=== PATIENT | male | born 1960 | race Caucasian/White ===

== ENCOUNTER 2023-12-24 15:08 | Observation (INO) | payer MEDICARE ==
--- NOTE | 2023-12-24 15:36 | ED ---
Arrhythmia/Palpitations HPI - General Stated Complaint: chest pain/dizzy Time Seen by Provider: 12/24/23 15:15 - History of Present Illness Initial Comments: Patient is a 63-year-old male with a history of recurrent SVT who presents to the emergency department today via ambulance for evaluation of palpitations lightheadedness diaphoresis and chest pain. Patient reports that he was sitting eating with his when he began having some lightheadedness feeling like he was about to pass out and then noticed his heart was racing he then developed pain in his chest radiating to his left arm. EMS was called and found the patient vance pale diaphoretic and SVT with a heart rate of 190. IV access was obtained the patient was given a 6 mg dose of adenosine. Patient's SVT resolved he was in a sinus rhythm transported to hospital for further evaluation. Patient ports he has a history of recurrent SVT usually has 3-4 but up to 10 episodes per year since 2018, he is followed with cardiology in the past there is been no intervention he was at 1 point prescribed metoprolol but he had orthostatic symptoms with this so discontinued taking it. Patient states that all the times he had SVT is never had near syncope or chest pain. Patient denies any other cardiac history. No known CAD. He is a previous smoker quit 15 years ago he has high cholesterol - Related Data Home Medications Medication Instructions Recorded Confirmed Buprenorphine/Naloxone 8Mg/2Mg 1 film SL DAILY 12/24/23 12/24/23 [Suboxone 8-2Mg Film] Cyclobenzaprine [Flexeril] 10 mg PO HS 12/24/23 12/24/23 Temazepam [Restoril] 15 mg PO HS 12/24/23 12/24/23 lamoTRIgine [LaMICtal] 100 mg PO DAILY 12/24/23 12/24/23 Allergies Allergy/AdvReac Type Severity Reaction Status Date / Time codeine Allergy Rash/Hives Verified 12/24/23 15:39 amitriptyline [From Elavil] AdvReac Unknown Verified 12/24/23 15:39 ibuprofen [From Motrin] AdvReac Abdominal Verified 12/24/23 15:40 Pain Review of Systems ROS Statement: Those systems with pertinent positive or pertinent negative responses have been documented in the HPI. ROS Other: All systems not noted in ROS Statement are negative. General Exam - General Exam Comments Initial Comments: Physical Exam GENERAL: Patient is well-developed and well-nourished. Patient is nontoxic and well- hydrated and is in no distress. HENT: Normocephalic, Atraumatic. EYES: PERRL, EOMI PULMONARY: Unlabored respirations. No audible rales rhonchi or wheezing was noted. CARDIOVASCULAR: There is a regular rate and rhythm without any murmurs gallops or rubs. ABDOMEN: Soft and nontender with normal bowel sounds. SKIN: Skin is clear with no lesions or rashes and otherwise unremarkable. : Deferred NEUROLOGIC: Patient is alert and oriented x3. Moving all extremities spontaneously MUSCULOSKELETAL: Normal extremities with adequate strength and full range of motion. No lower extremity swelling or edema. No calf tenderness. PSYCHIATRIC: Normal psychiatric evaluation. Course Vital Signs 12/24/23 12/24/23 12/24/23 15:33 16:45 17:45 Temperature 98.4 F 98.0 F Pulse Rate 98 79 83 Respiratory 18 16 18 Rate Blood Pressure 127/90 130/85 137/101 O2 Sat by Pulse 95 98 Oximetry 12/24/23 18:58 Temperature Pulse Rate 73 Respiratory 18 Rate Blood Pressure 120/79 O2 Sat by Pulse 96 Oximetry EKG Findings - EKG Comments: EKG Findings:: Reported by me, EKG obtained due to arrhythmia, EKG obtained at 1519 rate is 97 rhythm is normal sinus, normal axis, normal intervals OH 120 QRS 94 QTc 386 No evidence of acute ischemia or infarction Medical Decision Making - Medical Decision Making Was pt. sent in by a medical professional or institution (, PA, ANTIQUE COLLECTOR, urgent care, hospital, or [facility]...) When possible be specific @ -No Did you speak to anyone other than the patient for history (EMS, parent, family, police, friend...)? What history was obtained from this source @ -EMS Did you review nursing and triage notes (agree or disagree)? Why? @ -I reviewed and agree with nursing and triage notes Were old charts reviewed (outside hosp., previous admission, EMS record, old EKG, old radiological studies, urgent care reports/EKG's, [facility] records)? Report findings @ -No old charts were reviewed Differential Diagnosis (chest pain, altered mental status, abdominal pain women, abdominal pain men, vaginal bleeding, weakness, fever, dyspnea, syncope, headache, dizziness, GI bleed, back pain, seizure, CVA, palpatations, mental health)? @ -Differential Chest Pain: Stable Angina, Unstable Angina, STEMI, NSTEMI Aortic Dissection, Pneumothorax, Musculoskeletal, Esophageal Spasm GERD, Cholecystitis, Pancreatitis, Zoster, this is not meant to be an all-inclusive list. Differential Palpitations Ventricular arrhythmias, atrial arrhythmias, myocardial infarction, anemia, thyrotoxicosis, electrolyte imbalance, hypokalemia, pulmonary embolism, pulmonary disease, drugs, alcohol, anxiety, stress.... This is not meant to be an all-inclusive list. EKG interpreted by me (3pts min.). @ -As above X-rays interpreted by me (1pt min.). @ -No acute abnormality CT interpreted by me (1pt min.). @ -None done U/S interpreted by me (1pt. min.). @ -None done What testing was considered but not performed or refused? (CT, X-rays, U/S, labs)? Why? @ -None What meds were considered but not given or refused? Why? @ -None Did you discuss the management of the patient with other professionals (professionals i.e. , PA, ANTIQUE COLLECTOR, lab, RT, psych nurse, social security assessor, metal patternmaker apprentice, teacher, multisensor intelligence officer, rifle case repairer)? Give summary @ -Discussed with Dr. Hagan cardiology who recommends observation overnight for cardiology evaluation Was smoking cessation discussed for >3mins.? @ -No Was critical care preformed (if so, how long)? @ -No Were there social determinants of health that impacted care today? How? (Homelessness, low income, unemployed, alcoholism, drug addiction, transportation, low edu. Level, literacy, decrease access to med. care, penitentiary, rehab)? @ -No Was there de-escalation of care discussed even if they declined (Discuss DNR or withdrawal of care, Hospice)? DNR status @ -No What co-morbidities impacted this encounter? (DM, HTN, Smoking, COPD, CAD, Cancer, CVA, ARF, Chemo, Hep., AIDS, mental health diagnosis, sleep apnea, morbid obesity)? @ -None Was patient admitted / discharged? Hospital course, mention meds given and route, prescriptions, significant lab abnormalities, going to OR and other pertinent info. @ -Admit Patient was seen and evaluated upon arrival, he was in sinus tachycardia and no more SVT. He is not having any chest pain or near syncope. Labs were obtained and are unremarkable. Patient care was discussed Dr. Hagan who recommended trending the troponin and placing the patient in observation overnight for cardiology and GI evaluation considering the patient's lack of outpatient follow-up in the past few years. Patient care was discussed with Dr. Chicas who accepts admission patient was agreeable to plan for admission. Undiagnosed new problem with uncertain prognosis? @ -No Drug Therapy requiring intensive monitoring for toxicity (Heparin, Nitro, Insulin, Cardizem)? @ -No Were any procedures done? @ -No Diagnosis/symptom? @ -SVT, chest pain Acute, or Chronic, or Acute on Chronic? @ -Acute Uncomplicated (without systemic symptoms) or Complicated (systemic symptoms)? @ -Default Side effects of treatment? @ -No Exacerbation, Progression, or Severe Exacerbation? @ -No Poses a threat to life or bodily function? How? (Chest pain, [place], [place], pneumonia, PE, COPD, DKA, ARF, appy, cholecystitis, CVA, Diverticulitis, Homicidal, Suicidal, threat to staff... and all critical care pts) @ -Potential sign of cardiac ischemia or unstable angina - Lab Data Result diagrams: 12/24/23 15:59 12/24/23 15:59 Lab Results 12/24/23 12/24/23 12/24/23 Range/Units 15:59 15:59 15:59 WBC 7.4 (3.8-10.6) k/uL RBC 4.98 (4.30-5.90) m/uL Hgb 15.8 (13.0-17.5) gm/dL Hct 47.4 (39.0-53.0) % MCV 95.1 (80.0-100.0) fL MCH 31.7 (25.0-35.0) pg MCHC 33.3 (31.0-37.0) g/dL RDW 12.6 (11.5-15.5) % Plt Count 299 (150-450) k/uL MPV 6.9 Neutrophils % 68 % Lymphocytes % 22 % Monocytes % 7 % Eosinophils % 3 % Basophils % 1 % Neutrophils # 5.0 (1.3-7.7) k/uL Lymphocytes # 1.6 (1.0-4.8) k/uL Monocytes # 0.5 (0-1.0) k/uL Eosinophils # 0.2 (0-0.7) k/uL Basophils # 0.0 (0-0.2) k/uL PT 10.1 (10.0-12.5) sec INR 0.9 (<1.2) APTT 24.7 (22.0-30.0) sec Sodium 138 (137-145) mmol/L Potassium 4.1 (3.5-5.1) mmol/L Chloride 108 H (98-107) mmol/L Carbon Dioxide 23 (22-30) mmol/L Anion Gap 7 mmol/L BUN 19 (9-20) mg/dL Creatinine 0.73 (0.66-1.25) mg/dL Est GFR (CKD-EPI)AfAm >90 (>60 ml/min/1.73 sqM) Est GFR (CKD-EPI)NonAf >90 (>60 ml/min/1.73 sqM) Glucose 96 (74-99) mg/dL POC Glucose (mg/dL) (70-110) mg/dL POC Glu Multimedia Services Manager ID Calcium 9.3 (8.4-10.2) mg/dL Magnesium 2.0 (1.6-2.3) mg/dL Total Bilirubin 0.4 (0.2-1.3) mg/dL AST 22 (17-59) U/L ALT 17 (4-49) U/L Alkaline Phosphatase 85 (38-126) U/L Troponin I (0.000-0.034) ng/mL Total Protein 6.7 (6.3-8.2) g/dL Albumin 4.2 (3.5-5.0) g/dL TSH 0.801 (0.465-4.680) mIU/L Urine Opiates Screen (NotDetected) Ur Oxycodone Screen (NotDetected) Urine Methadone Screen (NotDetected) Ur Barbiturates Screen (NotDetected) U Tricyclic Antidepress (NotDetected) Ur Phencyclidine Scrn (NotDetected) Ur Amphetamines Screen (NotDetected) U Methamphetamines Scrn (NotDetected) U Benzodiazepines Scrn (NotDetected) Urine Cocaine Screen (NotDetected) U Marijuana (THC) Screen (NotDetected) 12/24/23 12/24/23 12/24/23 Range/Units 15:59 15:59 19:01 WBC (3.8-10.6) k/uL RBC (4.30-5.90) m/uL Hgb (13.0-17.5) gm/dL Hct (39.0-53.0) % MCV (80.0-100.0) fL MCH (25.0-35.0) pg MCHC (31.0-37.0) g/dL RDW (11.5-15.5) % Plt Count (150-450) k/uL MPV Neutrophils % % Lymphocytes % % Monocytes % % Eosinophils % % Basophils % % Neutrophils # (1.3-7.7) k/uL Lymphocytes # (1.0-4.8) k/uL Monocytes # (0-1.0) k/uL Eosinophils # (0-0.7) k/uL Basophils # (0-0.2) k/uL PT (10.0-12.5) sec INR (<1.2) APTT (22.0-30.0) sec Sodium (137-145) mmol/L Potassium (3.5-5.1) mmol/L Chloride (98-107) mmol/L Carbon Dioxide (22-30) mmol/L Anion Gap mmol/L BUN (9-20) mg/dL Creatinine (0.66-1.25) mg/dL Est GFR (CKD-EPI)AfAm (>60 ml/min/1.73 sqM) Est GFR (CKD-EPI)NonAf (>60 ml/min/1.73 sqM) Glucose (74-99) mg/dL POC Glucose (mg/dL) 101 (70-110) mg/dL POC Glu Multimedia Services Manager ID August Calcium (8.4-10.2) mg/dL Magnesium (1.6-2.3) mg/dL Total Bilirubin (0.2-1.3) mg/dL AST (17-59) U/L ALT (4-49) U/L Alkaline Phosphatase (38-126) U/L Troponin I <0.012 (0.000-0.034) ng/mL Total Protein (6.3-8.2) g/dL Albumin (3.5-5.0) g/dL TSH (0.465-4.680) mIU/L Urine Opiates Screen Not Detected (NotDetected) Ur Oxycodone Screen Not Detected (NotDetected) Urine Methadone Screen Not Detected (NotDetected) Ur Barbiturates Screen Not Detected (NotDetected) U Tricyclic Antidepress Not Detected (NotDetected) Ur Phencyclidine Scrn Not Detected (NotDetected) Ur Amphetamines Screen Not Detected (NotDetected) U Methamphetamines Scrn Not Detected (NotDetected) U Benzodiazepines Scrn Detected H (NotDetected) Urine Cocaine Screen Not Detected (NotDetected) U Marijuana (THC) Screen Detected H (NotDetected) 12/24/23 Range/Units 19:05 WBC (3.8-10.6) k/uL RBC (4.30-5.90) m/uL Hgb (13.0-17.5) gm/dL Hct (39.0-53.0) % MCV (80.0-100.0) fL MCH (25.0-35.0) pg MCHC (31.0-37.0) g/dL RDW (11.5-15.5) % Plt Count (150-450) k/uL MPV Neutrophils % % Lymphocytes % % Monocytes % % Eosinophils % % Basophils % % Neutrophils # (1.3-7.7) k/uL Lymphocytes # (1.0-4.8) k/uL Monocytes # (0-1.0) k/uL Eosinophils # (0-0.7) k/uL Basophils # (0-0.2) k/uL PT (10.0-12.5) sec INR (<1.2) APTT (22.0-30.0) sec Sodium (137-145) mmol/L Potassium (3.5-5.1) mmol/L Chloride (98-107) mmol/L Carbon Dioxide (22-30) mmol/L Anion Gap mmol/L BUN (9-20) mg/dL Creatinine (0.66-1.25) mg/dL Est GFR (CKD-EPI)AfAm (>60 ml/min/1.73 sqM) Est GFR (CKD-EPI)NonAf (>60 ml/min/1.73 sqM) Glucose (74-99) mg/dL POC Glucose (mg/dL) (70-110) mg/dL POC Glu Multimedia Services Manager ID Calcium (8.4-10.2) mg/dL Magnesium (1.6-2.3) mg/dL Total Bilirubin (0.2-1.3) mg/dL AST (17-59) U/L ALT (4-49) U/L Alkaline Phosphatase (38-126) U/L Troponin I <0.012 (0.000-0.034) ng/mL Total Protein (6.3-8.2) g/dL Albumin (3.5-5.0) g/dL TSH (0.465-4.680) mIU/L Urine Opiates Screen (NotDetected) Ur Oxycodone Screen (NotDetected) Urine Methadone Screen (NotDetected) Ur Barbiturates Screen (NotDetected) U Tricyclic Antidepress (NotDetected) Ur Phencyclidine Scrn (NotDetected) Ur Amphetamines Screen (NotDetected) U Methamphetamines Scrn (NotDetected) U Benzodiazepines Scrn (NotDetected) Urine Cocaine Screen (NotDetected) U Marijuana (THC) Screen (NotDetected) Disposition Clinical Impression: Supraventricular tachycardia, Chest pain Disposition: ADMITTED IP TO THIS [facility] Condition: Stable Referrals: Nonstaff,Physician [Primary Care Provider] - 1-2 days
[2023-12-24 16:21] LABS: Basophils % (A) 1 %; Eosinophils # (A) 0.2 k/uL (0-0.7); Eosinophils % (A) 3 %; HCT 47.4 % (39.0-53.0); HGB 15.8 gm/dL (13.0-17.5); Lymphocytes # (A) 1.6 k/uL (1.0-4.8); Lymphocytes % (A) 22 %; MCH 31.7 pg (25.0-35.0); MCHC 33.3 g/dL (31.0-37.0); MCV 95.1 fL (80.0-100.0); Mean Platelet Volume 6.9; Monocytes # (A) 0.5 k/uL (0-1.0); Monocytes % (A) 7 %; Neutrophils % (A) 68 %; Platelet Count 299 k/uL (150-450); RBC 4.98 m/uL (4.30-5.90); RDW 12.6 % (11.5-15.5); WBC 7.4 k/uL (3.8-10.6)
--- NOTE | 2023-12-24 16:28 | XR ---
EXAMINATION TYPE: XR chest 2V DATE OF EXAM: 12/24/2023 COMPARISON: None HISTORY: 63-year-old male dysrhythmia TECHNIQUE: PA and lateral views FINDINGS: Suspect intervertebral disc prosthesis near the cervicothoracic junction. Heart normal size. Aorta an d pulmonary vasculature within normal limits. Hazy lower lung densities relating to overlying soft ti ssue. No consolidation or pleural effusion seen. IMPRESSION: No definite acute process.
[2023-12-24] MEDS: ASPIRIN 81 MG PO STA (16:35)
[2023-12-24 16:39] LABS: ALT 17 U/L (4-49); AST 22 U/L (17-59); African American GFR (CKD) >90 (>60 ml/min/1.73 sqM); Albumin 4.2 g/dL (3.5-5.0); Alkaline Phosphatase 85 U/L (38-126); Anion Gap 7 mmol/L; Blood Urea Nitrogen 19 mg/dL (9-20); Calcium 9.3 mg/dL (8.4-10.2); Carbon Dioxide 23 mmol/L (22-30); Chloride 108 mmol/L (98-107); Glucose 96 mg/dL (74-99); Non-African American GFR(CKD) >90 (>60 ml/min/1.73 sqM); Potassium 4.1 mmol/L (3.5-5.1); Sodium 138 mmol/L (137-145); Total Bilirubin 0.4 mg/dL (0.2-1.3); Total Protein 6.7 g/dL (6.3-8.2)
[2023-12-24 16:41] LABS: INR 0.9 (<1.2); Partial Thromboplastin Time 24.7 sec (22.0-30.0); Prothrombin Time 10.1 sec (10.0-12.5)
[2023-12-24] MEDS: SODIUM CHLORIDE 0.9% 500 ML 500 ML IV STA (16:41)
[2023-12-24 17:34] LABS: Amphetamine Screen,Urine Not Detected (NotDetected); Benzodiazepines Screen,Urine Detected (NotDetected); Cocaine Screen,Urine Not Detected (NotDetected); Opiate Screen,Urine Not Detected (NotDetected); Phencyclidine Screen,Urine Not Detected (NotDetected); Urn Cannabinoid Scrn Detected (NotDetected)
[2023-12-24 17:35] LABS: Barbiturate Screen,Urine Not Detected (NotDetected); Methadone Screen, Urine Not Detected (NotDetected); Oxycodone Screen, Urine Not Detected (NotDetected); Tricyclic Antidepressant,Urine Not Detected (NotDetected)
[2023-12-24] MEDS: KETOROLAC 15 MG/ML 1 ML VIAL IVP STA (17:41)
[2023-12-24 17:47] VITALS: TEMP 98
[2023-12-24 19:03] LABS: Glucose,Whole Blood 101 mg/dL (70-110)
[2023-12-24] MEDS ORDERED: NALOXONE 0.4 MG/ML 1 ML VIAL IV PRN (19:48)
[2023-12-25] MEDS: TEMAZEPAM 15 MG CAP PO SCH (00:55)
[2023-12-25] MEDS: KETOROLAC 15 MG/ML 1 ML VIAL IVP PRN (05:37)
[2023-12-25 06:33] VITALS: RESP 16
[2023-12-25 08:38] VITALS: PULSE 78
[2023-12-25] MEDS: NON FORMULARY DRUG (Buprenorphine/Naloxone 8mg/2mg 1 EACH Film) SUBLINGUAL SCH (08:46)
--- NOTE | 2023-12-25 11:38 | P.HPIM ---
History of Present Illness 63-year-old male with history of recurrent SVT came in with complaints of palpitations lightheadedness diaphoresis and chest pain all of which resolved at this time patient is found to be in SVT with rate given a dose of adenosine afte r which he converted to sinus rhythm. Unfortunately SVT rhythms are not available at this time. Cardiology evaluated the patient. Patient was prescribed metoprolol but he was having symptoms of orthostatic hypotension and lightheadedness because of which these were discontinued. REVIEW OF SYSTEMS: All other systems are negative except those mentioned in the HPI PHYSICAL EXAMINATION: GENERAL: The patient is alert and oriented x3, not in any acute distress. Well developed, well nourished. HEENT: Pupils are round and equally reacting to light. EOMI. No scleral icterus. No conjunctival pallor. Normocephalic, atraumatic. No pharyngeal erythema. No thyromegaly. CARDIOVASCULAR: S1 and S2 present. No murmurs, rubs, or gallops. PULMONARY: Chest is clear to auscultation, no wheezing or crackles. ABDOMEN: Soft, nontender, nondistended, normoactive bowel sounds. No palpable organomegaly. MUSCULOSKELETAL: No joint swelling or deformity. EXTREMITIES: No cyanosis, clubbing, or pedal edema. NEUROLOGICAL: Gross neurological examination did not reveal any focal deficits. SKIN: No rashes. Assessment and plan -Recurrent SVT: Cardiology evaluate the patient patient is sinus rhythm at this time is cleared by cardiology patient will be discharged today I will leave the addition of beta-pretty to cardiology probably SVT episode may be secondary to his marijuana use -Anxiety disorder -Bipolar disorder -Marijuana use: Counseling was provided Patient is on Suboxone which will be continued If cleared by cardiology patient will be discharged today Past Medical History Past Medical History: Supraventricular Tachycardia (SVT) Additional Past Medical History / Comment(s): "prediabetic" History of Any Multi-Drug Resistant Organisms: None Reported Past Surgical History: Orthopedic Surgery Additional Past Surgical History / Comment(s): surgery on left testicle to repair blockage, left rotator cuff x2, spinal surgery, abdominal surgery to repair perforated ulcer Past Psychological History: Anxiety, Bipolar Smoking Status: Never smoker Past Alcohol Use History: None Reported Past Drug Use History: Marijuana Medications and Allergies Home Medications Medication Instructions Recorded Confirmed Type Buprenorphine/Naloxone 8Mg/2Mg 1 film SL DAILY 12/24/23 12/24/23 History [Suboxone 8-2Mg Film] Cyclobenzaprine [Flexeril] 10 mg PO HS 12/24/23 12/24/23 History Temazepam [Restoril] 15 mg PO HS 12/24/23 12/24/23 History lamoTRIgine [LaMICtal] 100 mg PO DAILY 12/24/23 12/24/23 History Allergies Allergy/AdvReac Type Severity Reaction Status Date / Time codeine Allergy Rash/Hives Verified 12/24/23 15:39 amitriptyline [From Elavil] AdvReac Unknown Verified 12/24/23 15:39 ibuprofen [From Motrin] AdvReac Abdominal Verified 12/24/23 15:40 Pain Physical Exam Vitals: Vital Signs Temp Pulse Resp BP Pulse Ox 12/25/23 08:00 78 16 142/94 94 L 12/25/23 06:32 58 L 16 114/69 94 L 12/25/23 02:00 65 18 141/93 95 12/24/23 20:00 80 18 124/83 95 12/24/23 18:58 73 18 120/79 96 12/24/23 17:45 98.0 F 83 18 137/101 98 12/24/23 16:45 79 16 130/85 12/24/23 15:33 98.4 F 98 18 127/90 95 Intake and Output 12/24/23 12/25/23 12/25/23 22:59 06:59 14:59 Other: Weight 81.647 kg Results CBC & Chem 7: 12/24/23 15:59 12/24/23 15:59 Labs: Abnormal Lab Results - Last 24 Hours (Table) 12/24/23 12/24/23 Range/Units 15:59 15:59 Chloride 108 H (98-107) mmol/L U Benzodiazepines Scrn Detected H (NotDetected) U Marijuana (THC) Screen Detected H (NotDetected)
--- NOTE | 2023-12-25 11:54 | P.CRDCN ---
History of Present Illness History of present illness: This is Dr. Ulloa dictating a consult on this patient The patient was interviewed and examined IMPRESSION / ASSESSMENT: Recurrent SVT, adenosine sensitive, not responsive to Valsalva maneuver 12 EKG shows narrow complex supraventricular tachycardia without clear-cut P waves ventricular rate 193 beats a minute Very symptomatic with presyncope, Patient has had at least 20 episodes since 2018. Normal TSH of 0.8 Intolerant of AV morgan blocking drugs with lightheadedness and dizziness Dyslipidemia Prior nicotine use of quit 15 years back PLAN: I would recommend a diagnostic EP study and radiofrequency ablation of the SVT. This was discussed with patient in detail. He is agreeable to the plan This gentleman has had SVT since 2018. He was treated with diltiazem and then a combination of diltiazem and metoprolol and he continues to have episodes of SVT. He is intolerant of AV morgan blocking drugs and therefore he was advised to take it only on a as needed basis He has never heard of an EP study and radiofrequency ablation as a curative method for treatment of SVT. He did see a needle punch machine operator helper out of town before I had a detailed discussion with him I explained the procedure to him I explained the pros and cons to him I will schedule him for an EP study and ablation for SVT He refuses to take even digoxin 0.125 mg p.o. daily From a cardiac standpoint he may go home and follow-up with me as an outpatient HPI Patient experienced sudden onset of palpitations. He became very dizzy and lightheaded and when EMS arrived he was in SVT. He was given IV adenosine with termination brought to the hospital The first twelve-lead EKG hospital shows sinus rhythm normal TX narrow QRS no delta waves normal ST segments The EMS EKG which documents SVT was never scanned in the computer. I had to specifically go ask for it and one of the nurses went to the EMS website and printed out for me. It was not available in the paper chart nor was it available in the EMR prior to this. My initial assessment was based simply on the patient's own history Once I receive the twelve-lead EKG SVT was confirmed by me with [address] depression Follow-up EKG shows no ST segment abnormalities and the patient has no chest pain Chest x-ray is normal ROS: No fever chills or rigors, no cough, phlegm or expectoration, no nausea, vomiting or diarrhea, no hematuria, dysuria, no musculoskeletal complaints, no strokes or seizures, no skin lesions. EXAMINATION: Pulse rate in the 70s normal respirations blood pressure 120/79 mmHg Heart sounds S1-S2 normal Breath sounds are clear REVIEW OF LABS, ECG & MEDICAL DATA Toxicology positive for benzodiazepines and marijuana Normal CBC normal white count Normal electrolytes normal troponin x 2 Past Medical History Past Medical History: Supraventricular Tachycardia (SVT) Additional Past Medical History / Comment(s): "prediabetic" History of Any Multi-Drug Resistant Organisms: None Reported Past Surgical History: Orthopedic Surgery Additional Past Surgical History / Comment(s): surgery on left testicle to repair blockage, left rotator cuff x2, spinal surgery, abdominal surgery to repair perforated ulcer Past Psychological History: Anxiety, Bipolar Smoking Status: Never smoker Past Alcohol Use History: None Reported Past Drug Use History: Marijuana Medications and Allergies Home Medications Medication Instructions Recorded Confirmed Type Buprenorphine/Naloxone 8Mg/2Mg 1 film SL DAILY 12/24/23 12/24/23 History [Suboxone 8-2Mg Film] Cyclobenzaprine [Flexeril] 10 mg PO HS 12/24/23 12/24/23 History Temazepam [Restoril] 15 mg PO HS 12/24/23 12/24/23 History lamoTRIgine [LaMICtal] 100 mg PO DAILY 12/24/23 12/24/23 History Allergies Allergy/AdvReac Type Severity Reaction Status Date / Time codeine Allergy Rash/Hives Verified 12/24/23 15:39 amitriptyline [From Elavil] AdvReac Unknown Verified 12/24/23 15:39 ibuprofen [From Motrin] AdvReac Abdominal Verified 12/24/23 15:40 Pain Physical Exam Vitals: Vital Signs Temp Pulse Resp BP Pulse Ox 12/25/23 08:00 78 16 142/94 94 L 12/25/23 06:32 58 L 16 114/69 94 L 12/25/23 02:00 65 18 141/93 95 12/24/23 20:00 80 18 124/83 95 12/24/23 18:58 73 18 120/79 96 12/24/23 17:45 98.0 F 83 18 137/101 98 12/24/23 16:45 79 16 130/85 12/24/23 15:33 98.4 F 98 18 127/90 95 Intake and Output 12/24/23 12/25/23 12/25/23 22:59 06:59 14:59 Other: Weight 81.647 kg Results 12/24/23 15:59 12/24/23 15:59 Cardiac Enzymes 12/24/23 12/24/23 12/24/23 Range/Units 15:59 15:59 19:05 AST 22 (17-59) U/L Troponin I <0.012 <0.012 (0.000-0.034) ng/mL Coagulation 12/24/23 Range/Units 15:59 PT 10.1 (10.0-12.5) sec APTT 24.7 (22.0-30.0) sec CBC 12/24/23 Range/Units 15:59 WBC 7.4 (3.8-10.6) k/uL RBC 4.98 (4.30-5.90) m/uL Hgb 15.8 (13.0-17.5) gm/dL Hct 47.4 (39.0-53.0) % Plt Count 299 (150-450) k/uL Comprehensive Metabolic Panel 12/24/23 Range/Units 15:59 Sodium 138 (137-145) mmol/L Potassium 4.1 (3.5-5.1) mmol/L Chloride 108 H (98-107) mmol/L Carbon Dioxide 23 (22-30) mmol/L BUN 19 (9-20) mg/dL Creatinine 0.73 (0.66-1.25) mg/dL Glucose 96 (74-99) mg/dL Calcium 9.3 (8.4-10.2) mg/dL AST 22 (17-59) U/L ALT 17 (4-49) U/L Alkaline Phosphatase 85 (38-126) U/L Total Protein 6.7 (6.3-8.2) g/dL Albumin 4.2 (3.5-5.0) g/dL Current Medications Generic Name Dose Route Start Last Admin Trade Name Freq PRN Reason Stop Dose Admin Ketorolac Tromethamine 15 mg 12/24/23 19:48 12/25/23 05:37 Ketorolac 15 Mg/Ml 1 Ml Vial IVP 12/27/23 19:50 15 mg Q6HR PRN Administration Moderate Pain (Scale 4 to 6) Naloxone HCl 0.2 mg 08/01/24 19:48 Naloxone 0.4 Mg/Ml 1 Ml Vial IV Q2M PRN Opioid Reversal Non-Formulary Medication 1 film 12/25/23 09:00 12/25/23 08:46 Buprenorphine/Naloxone 8mg/2mg SUBLINGUAL Not Given BID SIRENA Temazepam 15 mg 12/24/23 22:15 12/25/23 00:55 Temazepam 15 Mg Cap PO 15 mg HS SIRENA Administration Intake and Output 12/24/23 12/25/23 12/25/23 22:59 06:59 14:59 Other: Weight 81.647 kg 12/24/23 15:59 12/24/23 15:59
[2023-12-25 12:13] VITALS: BP 118/70
== END 2023-12-25 15:48 | disposition home or self-care (01) ==
LOC: EC 15:08 → 6NMEDSUR 19:50
PROVIDERS: ADMIT Internal Medicine; ATTEND Internal Medicine
DX: I47.10 Supraventricular tachycardia, unspecified (principal); F41.9 Anxiety disorder, unspecified; F31.9 Bipolar disorder, unspecified; R73.03 Prediabetes; Z87.891 Personal history of nicotine dependence; Z79.899 Other long term (current) drug therapy; Z88.5 Allergy status to narcotic agent; Z79.891 Long term (current) use of opiate analgesic
CPT/HCPCS: 36415; 93005; 80053; 83735; 84443; 84484; 85025; 85610; 85730; 80306; 71046; G0378 ×2; J3360; J1885 ×2; 96361; 96374; 96375; 96376; 99285

== ENCOUNTER 2024-03-21 08:26 | Day surgery (SDC) | payer MEDICARE ==
[2024-03-17 15:18] VITALS: BMI 23.7
[~2024-03-21 08:26] MED LIST: ALPRAZolam 0.25 MG TAB PO PRN; ALPRAZolam 0.5 MG TAB PO PRN; HEPARIN SODIUM,PORCINE (1 ML) 2,500 UNIT in SODIUM CHLORIDE 0.9% 250 ML IRRIGATION PRN; HEPARIN SODIUM,PORCINE 10,000 UNIT in SODIUM CHLORIDE 0.9% 1,000 ML IRRIGATION PRN; MIDAZOLAM 2 MG/2 ML VIAL IV PRN; NITROGLYCERIN SL TABS 0.4 MG TAB SUBLINGUAL PRN; fentaNYL (PF) 50 MCG/ML 2 ML AMP IV PRN
[2024-03-21] MEDS: SODIUM CHLORIDE 0.9% 1,000 ML IV SCH (08:51)
[2024-03-21 08:57] LABS: Basophils # (A) 0.1 k/uL (0-0.2); Basophils % (A) 1 %; Eosinophils # (A) 0.3 k/uL (0-0.7); Eosinophils % (A) 4 %; HCT 46.5 % (39.0-53.0); HGB 15.2 gm/dL (13.0-17.5); Lymphocytes # (A) 1.8 k/uL (1.0-4.8); Lymphocytes % (A) 24 %; MCH 31.4 pg (25.0-35.0); MCHC 32.6 g/dL (31.0-37.0); MCV 96.2 fL (80.0-100.0); Mean Platelet Volume 6.8; Monocytes # (A) 0.5 k/uL (0-1.0); Monocytes % (A) 6 %; Neutrophils % (A) 64 %; Platelet Count 296 k/uL (150-450); RBC 4.84 m/uL (4.30-5.90); RDW 12.6 % (11.5-15.5); WBC 7.7 k/uL (3.8-10.6)
[2024-03-21 09:12] LABS: African American GFR (CKD) >90 (>60 ml/min/1.73 sqM); Anion Gap 8 mmol/L; Blood Urea Nitrogen 18 mg/dL (9-20); Calcium 9.1 mg/dL (8.4-10.2); Carbon Dioxide 26 mmol/L (22-30); Chloride 105 mmol/L (98-107); Glucose 113 mg/dL (74-99); Non-African American GFR(CKD) >90 (>60 ml/min/1.73 sqM); Sodium 139 mmol/L (137-145)
[2024-03-21 09:21] LABS: Potassium 4.8 mmol/L (3.5-5.1)
[2024-03-21] MEDS ORDERED: PROPOFOL 10 MG/ML 20 ML VIAL IV ONE (10:41)
[2024-03-21] MEDS ORDERED: PHENYLEPHRINE 10 MG/ML VIAL ONE (10:41)
[2024-03-21] MEDS ORDERED: MIDAZOLAM 2 MG/2 ML VIAL ONE (10:41)
[2024-03-21] MEDS ORDERED: ISOPROTERENOL 250 MCG/1.25 ML SYR IV ONE (10:41)
[2024-03-21] MEDS ORDERED: ONDANSETRON 4 MG/2 ML VIAL ONE (10:41)
[2024-03-21] MEDS ORDERED: fentaNYL (PF) 50 MCG/ML 2 ML AMP ONE (10:41)
[2024-03-21] MEDS ORDERED: HYDROmorphone (PF) 1 MG/ML ONE (10:41)
[2024-03-21] MEDS: IV FLUID CONTINUATION 950 ML IV ONE (10:45)
--- NOTE | 2024-03-21 10:59 | P.HPCAR ---
History of Present Illness This is Dr. 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 When he gets up in the morning he finds himself in SVT and has had recurrent spells after I saw him No loss of consciousness no chest pain No fever chills cough expectoration ROS: No fever chills or rigors, no cough, phlegm or expectoration, no nausea, vomiting or diarrhea, no hematuria, dysuria, no musculoskeletal complaints, no strokes or seizures, no skin lesions. EXAMINATION: Afebrile, pulse rate in the 70s, blood pressure 139/85 mmHg Heart sounds S1-S2 normal Breath sounds are clear Extremities warm no edema No JVD REVIEW OF LABS, ECG & MEDICAL DATA White count 7.7 thousand, hemoglobin 15.2, platelet count 296,000 Sodium normal potassium normal Creatinine normal Physical Exam Vitals: Vital Signs Temp Pulse Resp BP Pulse Ox 03/21/24 08:54 98.1 F 71 16 139/85 97 Intake and Output 03/20/24 03/21/24 03/21/24 22:59 06:59 14:59 Other: Weight 82.9 kg Past Medical History Past Medical History: Chest Pain / Angina, Hearing Disorder / Deafness, Hyperlipidemia, Rheumatoid Arthritis (RA), Supraventricular Tachycardia (SVT), Thyroid Disorder Additional Past Medical History / Comment(s): "prediabetic", "Sometimes I have a little elevated heartrate while resting." "I've woken up with episodes of SVT recently""Very rare angina". Perforated ulcer 2006. "I had high choleterol a few months ago" "I think I have Rheumatoid arthritis." History of Any Multi-Drug Resistant Organisms: None Reported Past Surgical History: Orthopedic Surgery Additional Past Surgical History / Comment(s): surgery on left testicle to repair blockage, spinal surgery, abdominal surgery to repair perforated ulcer. Rt shoulder rotator cuff repair x2. Artificial disc in neck. Colonoscopy Past Anesthesia/Blood Transfusion Reactions: No Reported Reaction Additional Past Anesthesia/Blood Transfusion Reaction / Comment(s): No hx of blood transfusion to date. Smoking Status: Former smoker - Past Family History Father Family Medical History: No Reported History Physical Examination Vital Signs Temp Pulse Resp BP Pulse Ox 03/21/24 08:54 98.1 F 71 16 139/85 97 Intake and Output 03/20/24 03/21/24 03/21/24 22:59 06:59 14:59 Other: Weight 82.9 kg Results 03/21/24 08:40 03/21/24 08:40 CBC 03/21/24 Range/Units 08:40 WBC 7.7 (3.8-10.6) k/uL RBC 4.84 (4.30-5.90) m/uL Hgb 15.2 (13.0-17.5) gm/dL Hct 46.5 (39.0-53.0) % Plt Count 296 (150-450) k/uL Comprehensive Metabolic Panel 03/21/24 Range/Units 08:40 Sodium 139 (137-145) mmol/L Potassium 4.8 (3.5-5.1) mmol/L Chloride 105 (98-107) mmol/L Carbon Dioxide 26 (22-30) mmol/L BUN 18 (9-20) mg/dL Creatinine 0.79 (0.66-1.25) mg/dL Glucose 113 H (74-99) mg/dL Calcium 9.1 (8.4-10.2) mg/dL Current Medications Generic Name Dose Route Start Last Admin Trade Name Freq PRN Reason Stop Dose Admin Alprazolam 0.25 mg 03/21/24 05:41 Alprazolam 0.25 Mg Tab PO 04/20/24 05:40 Q6HR PRN Mild Anxiety Alprazolam 0.5 mg 03/21/24 05:41 Alprazolam 0.5 Mg Tab PO 04/20/24 05:40 Q6HR PRN Moderate Anxiety Fentanyl Citrate 50 mcg 03/21/24 07:00 Fentanyl (Pf) 50 Mcg/Ml 2 Ml Amp IV 03/21/24 23:00 Q3M PRN Phase I - Pain Control Sodium Chloride 1,000 mls @ 20 mls/hr 03/21/24 05:41 03/21/24 08:51 Saline 0.9% IV 04/20/24 05:40 20 mls/hr .Q24H SIRENA Administration Heparin Sodium (Porcine) 10, 1,001 mls @ 999 mls/hr 03/21/24 05:41 000 unit/ Sodium Chloride IRRIGATION 03/22/24 05:40 ONCE PRN INTRA-OP Heparin Sodium (Porcine) 2,500 250.5 mls @ 250 mls/hr 03/21/24 05:41 unit/ Sodium Chloride IRRIGATION 03/22/24 05:40 ONCE PRN INTRA-OP Sodium Chloride 1,000 ml/ IV 1,000 mls @ 79.379 mls/hr 03/21/24 05:41 Solution IV 04/20/24 05:40 .[id number] SIRENA 1 ML/KG/HR Lactated Ringer's 1,000 mls @ 20 mls/hr 03/21/24 05:41 Lactated Ringers IV 04/20/24 05:40 .Q24H SIRENA Midazolam HCl 2 mg 03/21/24 07:00 Midazolam 2 Mg/2 Ml Vial IV 03/21/24 23:00 ONCE PRN Pre-Op Anxiety Nitroglycerin 0.4 mg 03/21/24 05:41 Nitroglycerin Sl Tabs 0.4 Mg Tab SUBLINGUAL 04/20/24 05:40 Q5M PRN Chest Pain Intake and Output 03/20/24 03/21/24 03/21/24 22:59 06:59 14:59 Other: Weight 82.9 kg Patient Weight 03/22/24 06:59 Weight 82.9 kg 03/21/24 08:40 03/21/24 08:40
[2024-03-21] MEDS: LIDOCAINE 1% INJ 10MG/ML (20 ML MDV) SQ ONE (11:18)
[2024-03-21] MEDS: HEPARIN SODIUM (1,000 UNIT/ML) 1,000 UNIT in SODIUM CHLORIDE 0.9% 1,000 ML IRRIGATION ONE (12:00)
[2024-03-21] MEDS: ROPIVACAINE 5 MG/ML 30 ML VIAL MISCELLANE ONE (12:07)
[2024-03-21 13:25] LABS: Glucose,Whole Blood 97 mg/dL (70-110)
--- NOTE | 2024-03-21 13:35 | P.EPPROC ---
- EP Procedure Note Electrophysiology Procedure Note: Procedure: Diagnostic EP study followed by radiofrequency ablation of the slow pathway Indication of procedure: Recurrent SVT with RVR, intolerant of AV naren blocking drugs, symptomatic Details: Patient was brought to the EP lab in a fasting state. Written informed consent was obtained prior to the procedure. Venous sheaths were placed in the right left femoral veins and diagnostic catheters were positioned in the right heart including right atrium His bundle area coronary sinus and right ventricle. A detailed EP study was performed Sinus cycle length 921 ms, WA interval 129 ms, QRS 103 ms and QT interval 408 ms AH 60 ms and HV interval 35 ms Sinus node recovery times were 1357, 1254 and 1391 ms. Normal corrected sinus node recovery times AV node Wenckebach block 390 ms Slow pathway conduction noted antegradely with easily inducible AV naren reentry with Short septal times and a VAV response following V pacing from the right ventricle A long sheath and an irrigated tip catheter were placed. 3D electroanatomic mapping was performed. The hiss cloud was mapped. Coronary sinus was mapped and tricuspid annulus was tagged Slow pathway was mapped. RF ablation was applied with good contact force and power. Junctional rhythm obtained. RF ablation corrected the os of the coronary sinus. After completion of this short line diagnose EP study once again performed Both on and off Isopril there was no evidence for AV naren reentry of slow pathway conduction antegradely Para-Hisian pacing was performed. There was no evidence for any retrograde accessory pathway conduction either. Naren response was noted Up to triple extrastimuli on Isopril performed from the atria. Ventricular stimulation performed. No SVT induced All catheters removed and venous access sites sealed with Vascade. Patient Toller procedure well without any acute complications Please see right heart catheter report separately
--- NOTE | 2024-03-21 13:37 | P.PCN ---
Preoperative Diagnosis: Elevated RVSP of greater than 50 mmHg on 2D echo and Doppler study. Past history of longstanding smoking Patient was brought to the EP lab in a fasting state. Written informed consent was obtained prior to the procedure. Under very light sedation venous access was obtained and a Garrison-David catheter was placed in the right heart. An [id number] technique had to be used to place the catheter in the distal pulmonary artery. Pulmonary capillary wedge pressure 11/4/7 mmHg PA pressures 24/6/13 mmHg RV pressures 25/0/9 mmHg Right atrial pressures 6/0/3 mmHg The Garrison-David catheter was removed Impression Normal right-sided pressures with normal RA RV and PA pressures Normal wedge pressures
[2024-03-21] MEDS: ASPIRIN 325 MG TAB PO STA (16:24)
[2024-03-21] MEDS: ATORVASTATIN 80 MG TAB PO STA (16:24)
[2024-03-21] MEDS: LACTATED RINGERS 1,000 ML IV SCH (16:24)
[2024-03-21] MEDS ORDERED: HYDROcodone/APAP 5-325MG 1 EACH TAB PO PRN (18:41)
[2024-03-21] MEDS: TEMAZEPAM 15 MG CAP PO SCH (20:17)
[2024-03-22 08:08] VITALS: BP 120/80; PULSE 80; RESP 16; TEMP 98
[2024-03-22] MEDS: lamoTRIgine 100 MG TAB PO SCH (08:24)
[2024-03-22 09:05] LABS: Glucose,Whole Blood 134 mg/dL (70-110)
[2024-03-22] MEDS: SODIUM CHLORIDE 0.9% 1,000 ML in EMPTY BAG 1 BAG IV SCH (10:44)
== END 2024-03-22 10:55 | disposition home or self-care (01) ==
LOC: CATHEP 08:26 → 6NMEDSUR 14:18 → CATHEP 03-22 10:55
PROVIDERS: ATTEND Internal Medicine Clinical Cardiac Electrophysiology
DX: I47.10 Supraventricular tachycardia, unspecified (principal); E78.5 Hyperlipidemia, unspecified; I20.9 Angina pectoris, unspecified; M06.9 Rheumatoid arthritis, unspecified; R73.03 Prediabetes; F31.9 Bipolar disorder, unspecified; Z79.899 Other long term (current) drug therapy; Z87.891 Personal history of nicotine dependence; Z88.5 Allergy status to narcotic agent; Z88.8 Allergy status to other drugs, medicaments and biological substances
CPT/HCPCS: 93451; 93623; 93653; 86900; 86901; 80048; 84443; 85025; 86850; C1769 ×2; C1894; C1760; C1766; C1730 ×3; C1732; J2250; J2405; J2003; J3010; J1644; J1171; J2795; J2704; J2371